=== PATIENT | female | born 1965 | race Caucasian/White ===

== ENCOUNTER 2022-08-08 18:43 | Inpatient (IN) | payer BC ==
[~2022-08-08] VITALS: Ht 175.3 cm; Wt 60.8 kg
[~2022-08-08 18:43] MED LIST changes: -ACET-2267 PO; -BLUE500T PO; -COLLAGEN PEPTIDES PO; -FURO20TA4 PO; -IBUP-2473 PO; -MAGN400T39 PO; -NAPR220T66 PO; -POTA10TA PO; -POTA2TAB5 PO; -SOY155CA PO; -TURM500C4 PO; -VITA-189 PO
[2022-08-08] MEDS ORDERED: ASPIRIN 81 MG CHEW (CHILDREN'S ASA) PO STA (18:55)
[2022-08-08] MEDS ORDERED: meTOprolol 5 MG/5 ML (LOPRESSOR) VIAL IV STA (19:09)
[2022-08-08 19:15] LABS: FIBRIN DEGRADATION PRODUCTS 1.04 UG/ML (0.00-0.49); PROTHROMBIN TIME PATIENT 13.5 SEC (12.2-14.7)
--- NOTE | 2022-08-08 19:19 | ED Cardiac General ---
History of Present Illness General Chief Complaint: Respiratory Problems Stated Complaint: SOA Nursing Triage Note: PT AMB TO [facility] WITH COMPLAINT OF SOA, CHEST PRESSURE FOR THE LAST TWO WEEKS. WAS SEEN AT URGENT CARE TODAY ADN SENT TO HOSPITAL FOR OUTPATIENT LABS. [facility] CALLED HER BACK TO DUE TO ELEVATED TROPONIN AND BNP. (EBONI ALEJANDRE) History of Present Illness Date Seen by Provider: Aug 08, 2022 Time Seen by Provider: 18:45 Initial Comments 56 year old weekend presents from Urgent Care. She was evaluated there earlier today for SOA, no chest pain. Had EKG at and referred to hospital for outpatient labs and chest xray. She returned home, troponin was elevated, so she was called to present to ER. No report was called here from . Patient denies chest pain but mild chest pressure without radiation to arms, neck, or face. She has experienced right shoulder and trapezius pain intermittently for the last few weeks, uses OTC meds to help. She reports seeing Dr. Anders many years ago for Mitral Valve Prolapse. Otherwise no known cardiac history. She did not get Aspirin at . No history of CAD or DM; denies tobacco or drug use; drinks alcohol 2-3 times a week (beer, wine or whiskey). Denies N/ V/D or diaphoresis. She had mycoplasma pneumonia in Mar 2022, prior to that she was active with weight lifting and yoga. Timing/Duration: other (2 weeks) Severity: mild Location: substernal Prior CP/Workup: no prior chest pain Modifying Factors: improves with rest NTG SL DIRECTOR OF FIELD SALES: No ASA po DIRECTOR OF FIELD SALES: No Associated Systoms: Chest Pain (pressure); No Cough, No Headaches, No Loss of Appetite, No Malaise, No Nausea/Vomiting; Shortness of Air; No Syncope, No Weakness (EBONI ALEJANDRE) Allergies and Home Medications Allergies Coded Allergies: amoxicillin (Verified Allergy, Unknown, 08/08/22) clavulanic acid (Verified Allergy, Unknown, 08/08/22) levofloxacin (Verified Allergy, Unknown, 08/08/22) pseudoephedrine (Verified Allergy, Unknown, 08/08/22) Patient Home Medication List Home Medication List Reviewed: Yes (EBONI ALEJANDRE) Azithromycin (Zithromax Tab) 250 Mg Tab, 2 TAB PO DAILY Prescribed by: SALLY MCDONOUGH on 08/03/12 2167 Review of Systems Review of Systems Constitutional: no symptoms reported, see HPI EENTM: No Symptoms Reported, See HPI Respiratory: See HPI, Shortness of Air Cardiovascular: See HPI, Chest Pain; Denies Palpitations Gastrointestinal: No Symptoms Reported, See HPI Genitourinary: No Symptoms Reported, See HPI (EBONI ALEJANDRE) All Other Systems Reviewed Negative Unless Noted: Yes (EBONI ALEJANDRE) Past Lrddflk-Mbpphu-Tnemsy Hx Patient Social History Smoking Status: Smoker Current Status UNK Smokeless Tobacco Frequency: User Current Status Unk Substance use?: Unable to obtain Alcohol Use?: Unable to obtain Pt feels they are or have been: Unable to obtain (EBONI ALEJANDRE) Immunizations Up To Date Tetanus Booster (TDap): Less than 5yrs (EBONI ALEJANDRE) Past Medical History Currently Using CPAP: No Currently Using BIPAP: No Cardiac: Yes Valvular Heart Disease Reproductive Disorders: No Female 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 oz. kg; 19.00 BMI Method: General Appearance: No Apparent Distress, WD/WN HEENT: PERRL/EOMI, TMs Normal, Normal ENT Inspection, Pharynx Normal Neck: Full Range of Motion, Normal Inspection, Non Tender, Supple Respiratory: Chest Non Tender, Lungs Clear, Normal Breath Sounds Cardiovascular: Regular Rate, Rhythm, Diastolic Murmur, Tachycardia Gastrointestinal: Normal Bowel Sounds, Non Tender, Soft Extremity: Normal Capillary Refill, Normal Inspection, Normal Range of Motion, No Pedal Edema Neurologic/Psychiatric: Alert, Oriented x3, No Motor/Sensory Deficits, Normal Mood/Affect Skin: Normal Color, Warm/Dry (EBONI ALEJANDRE) Progress/Results/Core Measures Results/Orders Lab Results Laboratory Tests Test 08/08/22 18:55 08/08/22 19:15 Range/Units Prothrombin Time 13.5 12.2-14.7 SEC INR Comment 1.0 0.8-1.4 Activated Partial Thromboplast Time 22 L 24-35 SEC D-Dimer 1.04 H 0.00-0.49 UG/ML Troponin I 0.052 H <0.028 NG/ML C-Reactive Protein High Sensitivity 0.55 H 0.00-0.50 MG/DL Influenza Type A (RT-PCR) Not Detected Not Detecte Influenza Type B (RT-PCR) Not Detected Not Detecte SARS-CoV-2 RNA (RT-PCR) Not Detected Not Detecte (AMI LIMA MD) My Orders Orders - AMI LIMA MD Ekg Tracing (08/08/22 18:46) (AMI LIMA MD) Medications Given in ED Current Medications Medications Dose Ordered Sig/Rehan Route Start Time Stop Time Status Last Admin Dose Admin Iohexol 100 ml ONCE ONCE IV 08/08/22 19:45 08/08/22 19:46 DC 08/08/22 19:53 65 ML Sodium Chloride 100 ml ONCE ONCE IV 08/08/22 19:45 08/08/22 19:46 DC 08/08/22 19:54 67 ML (AMI LIMA MD) Vital Signs/I&O 08/08/22 18:45 Pulse 123 Resp 16 B/P (MAP) 141/119 (126) Pulse Ox 97 O2 Delivery Room Air (AMI LIMA MD) Blood Pressure Mean: 126 Progress Progress Note : Time: 18:45 Progress Note Patient assessed, will repeat labs, EKG and aspirin 324. 1915 will give metoprolol 10 mg IV for heart rate that sustained in the upper 90s to 110. 1940 D-dimer elevated, will obtain CT angio. HR has improved to 80-90. troponin slightly higher than 1600, 0.[address] angio negative for PE. Discussed patient with Dr. Wilkerson and Dr. Hayes, agreeable with plans for admission. We will go Lovenox 40 mg subcu. Patient continues to have mild right shoulder pain in the trapezius region, will give Flexeril 10 mg p.o. (EBONI ALEJANDRE) Initial ECG Impression Date: Aug 08, 2022 Initial ECG Impression Time: 18:52 Initial ECG Rate: 116 Initial ECG Rhythm: S.Tach, PVC Initial ECG Intervals MA 148, QRST 90, QT 343, QTc 412. [place] P 86, RR 111, T- 6 Initial ECG Comparisson: Changed (PILIEBONI RAMOS) Diagnostic Imaging Diagonstic Imaging: Xray Plain Films/CT/US/NM/MRI: chest Comments NAME: CAITIE MCRAE [facility] REC#: [id number] PT STATUS: REG CLI : 1965 PHYSICIAN: DAMON SCHULZ APRN ADMIT DATE: 08/08/22/RAD Signed Date of Exam:08/08/22 CHEST PA/LAT (2 VIEW) INDICATION: SOA, nonrheumatic mitral valve prolapse. TECHNIQUE: Two view chest 4:37 PM. CORRELATION STUDY: None. FINDINGS: Moderate cardiac enlargement with a somewhat rounded configuration. Vasculature overall within normal limits. The lungs are clear with no consolidating infiltrate. There is no significant pleural effusion or pneumothorax. Mild S-type scoliotic curvature of the thoracic spine. IMPRESSION: Cardiac enlargement with somewhat rounded configuration. May reflect underlying cardiomyopathy versus pericardial effusion. No evidence of overt failure. Report was faxed to number provided at 4:45 p.m., by edenilson. Dictated by: Dictated on workstation # [id number] Dict: 08/08/22 1635 Trans: 08/08/221705 EDENILSON [id number] Interpreted by: NURY KHAN DO Electronically signed by: NURY KHAN DO 08/08/22 1706 Diagonstic Imaging: CT Plain Films/CT/US/NM/MRI: chest Comments NAME: CAITIE MCRAE [facility] REC#: [id number] PT STATUS: REG ER : 1965 PHYSICIAN: EBONI ALEJANDRE ADMIT DATE: 08/08/22/ER Draft Date of Exam:08/08/22 CT ANGIO CHEST W (R/O PE) INDICATION: Shortness of breath, elevated d-dimer. TECHNIQUE: CTA chest was obtained with IV contrast bolus, thin axial slices and MIP reconstructions. Dose reduction protocol was used. There is no prior study for comparison. There is cardiomegaly. There is no pulmonary arterial filling defect to suggest pulmonary emboli. Due to bolus timing, arterial structures are not well visualized but there is no evidence of aneurysm. There is no enlarged node in the mediastinum or judy. There is no enlarged axillary node. Visualized portions of the upper abdomen show no overt mass lesion. There is reflux of contrast into the hepatic veins and IVC compatible with CHF. There is a small right pleural effusion. Lung parenchymal windows show no consolidation. There is some dependent atelectatic change in the lung bases. IMPRESSION: No CT evidence of pulmonary emboli. Bolus timing is not optimal for evaluating the arterial structures. There is a small right pleural effusion. There is prominent cardiomegaly. There is evidence of CHF with reflux of contrast into the IVC and hepatic veins. There is some dependent atelectatic change but no discrete consolidation. Dictated on workstation # [id number] Dict: 08/08/222002 Trans: 08/08/222014 [facility] [id number] Interpreted by: CASH CRUZ MD Electronically signed by: (EBONI ALEJANDRE) Departure Impression Primary Impression: Elevated troponin Additional Impressions: Mitral valve prolapse Shortness of breath Disposition: ADMITTED INPATIENT Condition: Stable Admissions Decision to Admit/Date: Aug 08, 2022 Time/Decision to Admit Time: 19:00 (EBONI ALEJANDRE) Departure-Patient Inst. Referrals: NO,LOCAL PHYSICIAN (PCP/Family) Primary Care Physician ATTENDING PHYSICIAN NOTE: I was physically present as attending physician in the emergency department during the care of this patient. I did not personally interview or examine this patient. I did review the chart and found no formal cardiac evaluation previously. I did review the labs from the outpatient studies and found an elevated troponin of 0.04. Repeat troponin was slightly higher 2 hours later as 0.052. History and clinical presentation was reviewed with Eboni Alejandre NP. D- dimer was elevated and I therefore recommended CT angiogram. CT angiogram was reviewed by me personally and report was reviewed. No acute abnormalities, in particular pulmonary embolus, were noted by either me or the radiologist. Case was reviewed with Dr. Wilkerson, professor of fine art on-call. He recommended admission. Aspirin and prophylactic Lovenox were recommended. (AMI LIMA MD) Copy Copies To 1: FAUSTINO WORTHY AMY ARNP Aug 08, 2022 19:19 AMI LIMA MD Aug 08, 2022 21:40
[2022-08-08] MEDS ORDERED: NS IV 1000 ML 1,000 ML IV SCH (19:45)
[2022-08-08] MEDS ORDERED: NS 100 ML (IVPB) BAG IV ONE (19:45)
[2022-08-08] MEDS ORDERED: IOHEXOL 350 MG/ML 100 ML (OMNIPAQUE 350) VIAL IV ONE (19:45)
--- NOTE | 2022-08-08 20:17 | Diagnostic Imaging Report ---
INDICATION: Shortness of breath, elevated d-dimer. TECHNIQUE: CTA chest was obtained with IV contrast bolus, thin axial slices and MIP reconstructions. Dose reduction protocol was used. There is no prior study for comparison. There is cardiomegaly. There is no pulmonary arterial filling defect to suggest pulmonary emboli. Due to bolus timing, arterial structures are not well visualized but there is no evidence of aneurysm. There is no enlarged node in the mediastinum or judy. There is no enlarged axillary node. Visualized portions of the upper abdomen show no overt mass lesion. There is reflux of contrast into the hepatic veins and IVC compatible with CHF. There is a small right pleural effusion. Lung parenchymal windows show no consolidation. There is some dependent atelectatic change in the lung bases. IMPRESSION: No CT evidence of pulmonary emboli. Bolus timing is not optimal for evaluating the arterial structures. There is a small right pleural effusion. There is prominent cardiomegaly. There is evidence of CHF with reflux of contrast into the IVC and hepatic veins. There is some dependent atelectatic change but no discrete consolidation. Dictated by: Dictated on workstation # [id number]
[2022-08-08] MEDS ORDERED: ENOXAPARIN 40 MG/0.4 ML (LOVENOX) SYR SC STA (20:45)
[2022-08-08] MEDS ORDERED: CYCLOBENZAPRINE 10 MG (FLEXERIL) TAB PO STA (20:51)
[2022-08-08] MEDS ORDERED: morphine INJ 4 MG/ML 1 ML (VIAL/SYRINGE) IV PRN (21:45)
[2022-08-08] MEDS ORDERED: ONDANSETRON 4 MG/2 ML (SDV) Z0FRAN IV PRN (21:45)
[2022-08-08] MEDS ORDERED: CYCLOBENZAPRINE 10 MG (FLEXERIL) TAB PO PRN (21:45)
[2022-08-08 21:52] VITALS: BP 114/93
[2022-08-08] MEDS: NS IV 1000 ML 1,000 ML IV SCH (21:56)
[2022-08-08] MEDS: ACETAMINOPHEN 500 MG TAB (TYLENOL) PO PRN (21:56)
[2022-08-08 22:12] VITALS: BP 141/119
[2022-08-09] VITALS (7 sets, daily range): BP systolic 94–120; BP diastolic 71–97
[2022-08-09 01:41] LABS: BASOPHILS % (AUTO) 1 % (0-10); EOSINOPHILS % (AUTO) 1 % (0-10); HEMATOCRIT 48 % (35-52); HEMOGLOBIN 15.9 g/dL (11.5-16.0); LYMPHOCYTES % (AUTO) 22 % (12-44); MEAN CORPUSCULAR HEMOGLOBIN 31 pg (25-34); MEAN CORPUSCULAR HGB CONC 33 g/dL (32-36); MEAN CORPUSCULAR VOLUME 95 fL (80-99); MEAN PLATELET VOLUME 9.6 fL (9.0-12.2); MONOCYTES # (AUTO) 0.5 10^3/uL (0.0-1.0); MONOCYTES % (AUTO) 5 % (0-12); NEUTROPHILS # (AUTO) 6.3 10^3/uL (1.8-7.8); NEUTROPHILS % (AUTO) 71 % (42-75); PLATELET COUNT 232 10^3/uL (130-400); WHITE BLOOD COUNT 8.9 10^3/uL (4.3-11.0)
[2022-08-09 01:45] LABS: POTASSIUM 4.3 MMOL/L (3.6-5.0)
[2022-08-09 01:46] LABS: CALCIUM 8.8 MG/DL (8.5-10.1)
[2022-08-09 01:50] LABS: CREATININE SERUM 0.84 MG/DL (0.60-1.30)
[2022-08-09] MEDS: ACETAMINOPHEN 500 MG TAB (TYLENOL) PO PRN ×2 (08:15→16:23)
[2022-08-09] MEDS: ASPIRIN 325 MG (5 GR) TABLET PO SCH (08:16)
[2022-08-09] MEDS: RT-ALBUTEROL/IPRATROPIUM 3 ML (DUONEB) VIAL INH PRN (10:31)
[2022-08-09] MEDS: NS IV 1000 ML 1,000 ML IV SCH (10:46)
[2022-08-09] MEDS ORDERED: lisINopril 20 MG (PRINIVIL) TABLET PO SCH (11:00)
--- NOTE | 2022-08-09 11:26 | History & Physical-Hospitalist ---
History of Present Illness HPI/Chief Complaint Patient is a 56-year-old female with past medical history of hypertension who presented to the emergency department due to shortness of breath. She states that she had been diagnosed with mycoplasma pneumonia a few months ago and since that time has been intermittently short of breath and fatigued and never really got back to her baseline. Roughly 2 weeks ago though she became more short of breath and over the last week she has noted lower extremity edema of her legs. 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 She worked from home and kept her legs elevated 1 day and that seemed to help with her edema. Despite this she continued to have increasing shortness of breath and even orthopnea so she decided to seek evaluation in urgent care. They sent her to the hospital for outpatient labs and a chest x- ray. Her labs revealed an elevated troponin and she was then referred to the emergency department. A CTA of her chest was done which showed no evidence of pulmonary embolus but did have a small right pleural effusion with cardiomegaly with evidence of CHF. Repeat troponin was elevated and she was admitted for observation. Source: patient Date Seen 08/09/22 Time Seen by a Provider: 08:50 Attending Physician No,Local Physician PCP Admitting Physician: Avery Benites MD Attending Physician: Avery Benites MD Referring Physician Date of Admission Aug 08, 2022 at 20:30 Home Medications & Allergies Home Medications Reviewed patient Home Medication Reconciliation performed by pharmacy medication reconciliations health type technician and/or nursing. Patients Allergies have been reviewed. Allergies Allergies Coded Allergies amoxicillin (Verified Allergy, Unknown, 08/08/22) clavulanic acid (Verified Allergy, Unknown, 08/08/22) levofloxacin (Verified Allergy, Unknown, 08/08/22) pseudoephedrine (Verified Allergy, Unknown, 08/08/22) Past Lmysdfk-Ftgttv-Usrizm Hx Patient Social History Tobacco Use?: No Smoking Status: Smoker Current Status UNK Smokeless Tobacco Frequency: User Current Status Unk Use of E-Cig and/or Vaping dev: No Substance use?: No Alcohol Use?: Yes Alcohol type: Beer, Hard Liquor, Wine Alcohol Frequency: Couple times a week Pt feels they are or have been: Yes Immunizations Up To Date Date of Influenza Vaccine: Jun 24, 2022 Tetanus Booster (TDap): More Than 5 Years Current Status status: No status: No Advance Directives: No Communicates: Verbally Primary Language: Nigerian Preferred Spoken Language: Nigerian Is interpretation needed?: No Sensory deficits: Vision impairment Past Medical History Currently Using CPAP: No Currently Using BIPAP: No 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 oz. kg; 21.05 BMI Method: General Appearance: No Apparent Distress, Thin HEENT: PERRL/EOMI, Moist Mucous Membranes; No Scleral Icterus (L), No Scleral Icterus (R) Neck: Normal Inspection, Supple Respiratory: Lungs Clear, No Accessory Muscle Use, No Respiratory Distress Cardiovascular: Regular Rate, Rhythm, Systolic Murmur Gastrointestinal: Normal Bowel Sounds, Non Tender, Soft Extremity: Normal Capillary Refill, No Calf Tenderness, No Pedal Edema Neurologic/Psychiatric: Alert, Oriented x3, Normal Mood/Affect Results Results/Procedures Labs Laboratory Tests 08/09/22 01:05 Patient resulted labs reviewed. Imaging: Reviewed Imaging Report Imaging [facility] [place] NAME: CAITIE MCRAE [facility] REC#: [id number] PT STATUS: ADM IN : 1965 PHYSICIAN: VEDA ALEJANDRE ADMIT DATE: 08/08/22/ANA Signed Date of Exam:08/08/22 CT ANGIO CHEST W (R/O PE) INDICATION: Shortness of breath, elevated d-dimer. TECHNIQUE: CTA chest was obtained with IV contrast bolus, thin axial slices and MIP reconstructions. Dose reduction protocol was used. There is no prior study for comparison. There is cardiomegaly. There is no pulmonary arterial filling defect to suggest pulmonary emboli. Due to bolus timing, arterial structures are not well visualized but there is no evidence of aneurysm. There is no enlarged node in the mediastinum or judy. There is no enlarged axillary node. Visualized portions of the upper abdomen show no overt mass lesion. There is reflux of contrast into the hepatic veins and IVC compatible with CHF. There is a small right pleural effusion. Lung parenchymal windows show no consolidation. There is some dependent atelectatic change in the lung bases. IMPRESSION: No CT evidence of pulmonary emboli. Bolus timing is not optimal for evaluating the arterial structures. There is a small right pleural effusion. There is prominent cardiomegaly. There is evidence of CHF with reflux of contrast into the IVC and hepatic veins. There is some dependent atelectatic change but no discrete consolidation. Dictated by: Dictated on workstation # [id number] Dict: 08/08/222002 Trans: 08/08/222206 [facility] [id number] Interpreted by: CASH CRUZ MD Electronically signed by: CASH CRUZ MD 08/08/222206 Assessment/Plan Admission Diagnosis NSTEMI Admission Status: Observation Assessment and Plan Elevated troponin CHF- acutely decompensated Mitral valve prolapse HTN Likely type II WI due to CHF exacerbation Cardiology consulted, appreciate recs Echo ordered Monitor on telemetry BP well controlled, trend Further work up per cardiology DVT ppx: SCDs Diagnosis/Problems Diagnosis/Problems (1) HTN (hypertension) (2) Elevated troponin Status: Acute (3) Mitral valve prolapse Status: Acute Clinical Quality Measures AMI/AHF: ASA po Prior to arrival: AVERY Ma MD Aug 09, 2022 11:26
[2022-08-09] MEDS: FUROSEMIDE 40 MG/4 ML INJ (LASIX) IVP SCH (11:48)
[2022-08-09] MEDS: lisINopril 5 MG (PRINIVIL) TABLET PO SCH (11:48)
[2022-08-09] MEDS: KCL 10 MEQ TAB (MICRO K) PO SCH (11:48)
--- NOTE | 2022-08-09 14:42 | Consultation-Cardiology ---
HPI-Cardiology Cardiology Consultation: Date of Consultation 08/09/22 Time Seen by a Provider: 10:30 Date of Admission Attending Physician No,Local Physician Admitting Physician Admitting Physician: Malina Benites MD Attending Physician: Malina Benites MD Consulting Physician TONEY PARADA MD, MA, FACP, FACC, [facility], CCDS HPI: Chief Complaint: Shortness of breath 56 yo woman with increasing shortness of breath for a few weeks. Went to Urgent Care for eval on 08/08/22. Was found to have minimally elevated troponin. Sent to ER at [facility] from where she was admitted. She denies cp. Notes mild to mod, intermittent R shoulder discomfort, worse with motion, lasting up to approx 45 min, present for several weeks, unassociated with other symptoms, w/o radiation. Notes bilat ankle and leg swelling for the last several days. Denies palp or syncope Review of Systems-Cardiology Review of Systems Constitutional: malaise; No weight loss, No weight gain Eyes: No vision change Ears/Nose/Throat: No ear discharge, No nasal drainage, No recent hearing loss Respiratory: As described under HPI Cardiovascular: As described under HPI Gastrointestinal: No constipation, No diarrhea, No nausea, No vomiting Genitourinary: No dysuria, No hematuria, No urine frequency changes Musculoskeletal: joint pain (see under HPI) Skin: No rash, No ulcerations Psychiatric/Neurological: No seizure, No focal weakness, No syncope Hematologic: No bleeding abnormalities All Other Systems Reviewed Negative Unless Noted: Yes [id number] Hx Patient Social History Smoking Status: Smoker Current Status UNK Have you traveled recently?: No Alcohol Use?: Yes Pt feels they are or have been: Yes Immunizations Up To Date Tetanus Booster (TDap): Less than 5yrs Date of Influenza Vaccine: Jun 24, 2022 Past Medical History PMH As described under Assessment. Family Medical History Family Medical History: No fam h/o early CAD or SCD Allergies and Home Medications Allergies Coded Allergies: amoxicillin (Verified Allergy, Unknown, 08/08/22) clavulanic acid (Verified Allergy, Unknown, 08/08/22) levofloxacin (Verified Allergy, Unknown, 08/08/22) pseudoephedrine (Verified Allergy, Unknown, 08/08/22) Patient Home Medication List Home Medication List Reviewed: Yes Azithromycin (Zithromax Tab) 250 Mg Tab, 2 TAB PO DAILY Prescribed by: SALLY MCDONOUGH on 08/03/12 0447 Physical Exam-Cardiology Physical Exam Vital Signs/I&O 08/09/22 08/09/22 08/09/22 08/09/22 04:00 04:00 07:00 07:34 Temp 35.9 36.2 Pulse 98 94 103 Resp 21 16 B/P (MAP) 112/97 (102) 120/93 (102) Pulse Ox 94 96 O2 Delivery Room Air Room Air 08/09/22 08/09/22 08/09/22 08/09/22 08:00 08:54 10:31 11:58 Temp 36.3 Pulse 102 Resp 17 B/P (MAP) 120/95 (103) Pulse Ox 97 97 96 95 O2 Delivery Room Air Room Air Room Air Room Air O2 Flow Rate 0.00 0.00 08/09/22 12:42 Pulse 115 08/09/22 00:00 Intake Total 200 ml Balance 200 ml Capillary Refill : Less Than 3 Seconds Constitutional: AAO x 3, well-developed, well-nourished HEENT: EOMI, hearing is well preserved Neck: No carotid bruit; carotid pulses are 2 + bilaterally, with good upstrokes Respiratory: No accessory muscle use; chest expansion is symmetric, chest is bilaterally symmetric, other (good bilateral air enry) Cardiovascular: S1 and S2, systolic murmur (3/6 HSM at the card apex radiating towards the axilla) Gastrointestinal: No tender; soft; No guarding, No rebound; audible bowel sounds Extremities: other (mild ankle edema); No clubbing, No cyanosis Neurologic/Psychiatric: oriented x 3, other (moves all limbs equally) Skin: No rash on exposed areas, No ulcerations on exposed areas Data Review Labs Laboratory Tests 08/08/22 18:55: Prothrombin Time 13.5, INR Comment 1.0, Activated Partial Thromboplast Time 22L, D-Dimer 1.04H, Troponin I 0.052H, C-Reactive Protein High Sensitivity 0.55H 08/08/22 19:15: Influenza Type A (RT-PCR) Not Detected, Influenza Type B (RT-PCR) Not Detected, SARS-CoV-2 RNA (RT-PCR) Not Detected 08/09/22 01:05: Troponin I 0.054H, White Blood Count 8.9, Red Blood Count 5.10, Hemoglobin 15.9, Hematocrit 48, Mean Corpuscular Volume 95, Mean Corpuscular Hemoglobin 31, Mean Corpuscular Hemoglobin Concent 33, Red Cell Distribution Width 13.5, Platelet Count 232, Mean Platelet Volume 9.6, Immature Granulocyte % (Auto) 1, Neutrophils (%) (Auto) 71, Lymphocytes (%) (Auto) 22, Monocytes (%) (Auto) 5, Eosinophils (%) (Auto) 1, Basophils (%) (Auto) 1, Neutrophils # (Auto) 6.3, Lymphocytes # (Auto) 2.0, Monocytes # (Auto) 0.5, Eosinophils # (Auto) 0.0, Basophils # (Auto) 0.0, Immature Granulocyte # (Auto) 0.0, Sodium Level 141, Potassium Level 4.3, Chloride Level 114H, Carbon Dioxide Level 14L, Anion Gap 13, Blood Urea Nitrogen 23H, Creatinine 0.84, Estimat Glomerular Filtration Rate 80, BUN/Creatinine Ratio 27, Glucose Level 114H, Calcium Level 8.8 Laboratory Tests 08/09/22 01:05 A/P-Cardiology Assessment/Admission Diagnosis Ac CHF probably related to mitral regurg (probably HFpEF) H/o MVP Minimal troponin elevation probably minimal, type 2 [place] due to CHF. No evidence of acute coronary syndrome Discussion and Recomendations * Diuretics * BB * CARMINA-inhib * Echo * Further recs based on hosp course and findings * I discussed her CV issues with her and her fam in detail and answered questions Clinical Quality Measures AMI/AHF: ASA po Prior to arrival: TONEY Mir MD FACP FAC CCDS Aug 09, 2022 14:42
[2022-08-09] MEDS ORDERED: FUROSEMIDE 40 MG/4 ML INJ (LASIX) IVP NR (17:00)
[2022-08-09] MEDS ORDERED: KCL 20 MEQ TAB (K-DUR) PO NR (17:00)
[2022-08-10] VITALS (7 sets, daily range): BP systolic 89–106; BP diastolic 62–83
[2022-08-10 05:15] LABS: BASOPHILS % (AUTO) 0 % (0-10); EOSINOPHILS # (AUTO) 0.1 10^3/uL (0.0-0.3); EOSINOPHILS % (AUTO) 2 % (0-10); HEMATOCRIT 43 % (35-52); HEMOGLOBIN 14.4 g/dL (11.5-16.0); LYMPHOCYTES # (AUTO) 2.2 10^3/uL (1.0-4.0); LYMPHOCYTES % (AUTO) 35 % (12-44); MEAN CORPUSCULAR HEMOGLOBIN 31 pg (25-34); MEAN CORPUSCULAR HGB CONC 34 g/dL (32-36); MEAN CORPUSCULAR VOLUME 93 fL (80-99); MEAN PLATELET VOLUME 9.5 fL (9.0-12.2); MONOCYTES # (AUTO) 0.3 10^3/uL (0.0-1.0); MONOCYTES % (AUTO) 5 % (0-12); NEUTROPHILS # (AUTO) 3.7 10^3/uL (1.8-7.8); NEUTROPHILS % (AUTO) 58 % (42-75); PLATELET COUNT 228 10^3/uL (130-400); WHITE BLOOD COUNT 6.3 10^3/uL (4.3-11.0)
[2022-08-10 05:25] LABS: POTASSIUM 4.1 MMOL/L (3.6-5.0)
[2022-08-10 05:26] LABS: CALCIUM 8.6 MG/DL (8.5-10.1)
[2022-08-10 05:31] LABS: CREATININE SERUM 0.85 MG/DL (0.60-1.30)
[2022-08-10 05:33] LABS: MAGNESIUM 1.8 MG/DL (1.6-2.4)
[2022-08-10] MEDS: KCL 10 MEQ TAB (MICRO K) PO SCH (06:34)
[2022-08-10] MEDS: RT-ALBUTEROL/IPRATROPIUM 3 ML (DUONEB) VIAL INH PRN (06:36)
[2022-08-10] MEDS: FUROSEMIDE 40 MG/4 ML INJ (LASIX) IVP SCH (09:15)
[2022-08-10] MEDS: lisINopril 5 MG (PRINIVIL) TABLET PO SCH (09:15)
[2022-08-10] MEDS: ASPIRIN 325 MG (5 GR) TABLET PO SCH (09:16)
[2022-08-10] MEDS ORDERED: NS (IVPB) 0 ML ONE (09:34)
[2022-08-10] MEDS ORDERED: CEFEPIME 1 GM/10 ML (MAXIPIME) VIAL ONE (09:34)
--- NOTE | 2022-08-10 10:29 | Progress Note - Cardiology ---
Cardiology SOAP Progress Note Objective: I&O/Vital Signs 08/10/22 08/10/22 08/10/22 08/11/22 19:49 20:00 20:36 00:00 Temp 36.5 Pulse 103 98 94 Resp 15 20 18 B/P (MAP) 104/82 (89) 98/67 (77) 100/82 (88) Pulse Ox 96 93 96 93 O2 Delivery Room Air Room Air Room Air Room Air 08/11/22 08/11/22 08/11/22 08/11/22 00:11 01:00 04:00 04:11 Temp 36.0 36.0 Pulse 95 95 Resp 18 B/P (MAP) 107/75 (86) Pulse Ox 94 O2 Delivery Room Air 08/11/22 00:00 Intake Total 750 ml Output Total 300 ml Balance 450 ml Constitutional: AAO x 3, well-developed, well-nourished Respiratory: No accessory muscle use; chest expansion is symmetric, chest is bilaterally symmetric, other (good bilateral air enry) Cardiovascular: S1 and S2, systolic murmur (3/6 HSM at the card apex radiating towards the axilla) Gastrointestional: No tender; soft; No guarding, No rebound; audible bowel sounds Extremities: other (mild ankle edema); No clubbing, No cyanosis Neurologic/Psychiatric: oriented x 3, other (moves all limbs equally) Skin: No rash on exposed areas, No ulcerations on exposed areas Results/Procedures: Labs Laboratory Tests 08/11/22 04:41: Sodium Level 142, Potassium Level 4.0, Chloride Level 111H, Carbon Dioxide Level 21, Anion Gap 10, Blood Urea Nitrogen 20H, Creatinine 0.91, Estimat Glomerular Filtration Rate 73, BUN/Creatinine Ratio 22, Glucose Level 92, Calcium Level 8.9, Magnesium Level 1.8 A/P: Assessment: Ac CHF probably related to mitral regurg (probably HFpEF) - Echocardiogram of 08-09-22 showed LVEF 60-65%. LA is severely dilated. 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 No evidence of acute coronary syndrome Plan: * Reduce diuretics * Continue CARMINA * Monitor lab * Will need CV surgical eval d/t mod mitral valve prolapse with prob rupture of tendinous chorda with severe regurg * Dr. Wilkerson has discussed her CV issues with her and her fam in detail and answered questions Clinical Quality Measures AMI/AHF: ASA po Prior to arrival: SONG Artis Aug 10, 2022 10:29
[2022-08-10] MEDS ORDERED: FURO20TA4 PO (11:06)
[2022-08-10] MEDS ORDERED: POTA10TA PO (11:06)
[2022-08-10] MEDS ORDERED: IBUP-2473 PO (11:06)
[2022-08-10] MEDS ORDERED: VITA-189 PO (11:06)
[2022-08-10] MEDS ORDERED: SOY155CA PO (11:06)
[2022-08-10] MEDS ORDERED: BLUE500T PO (11:06)
[2022-08-10] MEDS ORDERED: COLLAGEN PEPTIDES PO (11:06)
[2022-08-10] MEDS ORDERED: POTA2TAB5 PO (11:06)
[2022-08-10] MEDS ORDERED: NAPR220T66 PO (11:06)
[2022-08-10] MEDS ORDERED: MAGN400T39 PO (11:06)
[2022-08-10] MEDS ORDERED: ACET-2267 PO (11:06)
[2022-08-10] MEDS ORDERED: TURM500C4 PO (11:06)
--- NOTE | 2022-08-10 15:14 | Progress Note - Cardiology ---
Cardiology SOAP Progress Note Subjective: Shortness of breath has improved No cp or palp or syncope No swelling No n/v/d No focal weakness Objective: I&O/Vital Signs 08/10/22 08/10/22 08/10/22 08/10/22 04:00 06:36 06:50 08:00 Temp 36.4 Pulse 86 98 Resp 18 B/P (MAP) 102/82 (89) Pulse Ox 98 94 95 O2 Delivery Room Air Room Air Room Air O2 Flow Rate 0.00 08/10/22 08/10/22 08/10/22 08/10/22 08:00 09:00 12:00 12:30 Pulse 105 102 Resp 20 12 B/P (MAP) 89/62 (71) 100/78 (85) 106/83 (91) Pulse Ox 97 96 95 O2 Delivery Room Air Room Air Room Air 08/10/22 13:47 Pulse 105 08/10/22 00:00 Intake Total 1390 ml Balance 1390 ml Constitutional: AAO x 3, well-developed, well-nourished Respiratory: No accessory muscle use; chest expansion is symmetric, chest is bilaterally symmetric, other (good bilateral air enry) Cardiovascular: S1 and S2, systolic murmur (3/6 HSM at the card apex radiating towards the axilla) Gastrointestional: No tender; soft; No guarding, No rebound; audible bowel sounds Extremities: other (mild ankle edema); No clubbing, No cyanosis Neurologic/Psychiatric: oriented x 3, other (moves all limbs equally) Skin: No rash on exposed areas, No ulcerations on exposed areas Results/Procedures: Labs Laboratory Tests 08/10/22 05:05: White Blood Count 6.3, Red Blood Count 4.59, Hemoglobin 14.4, Hematocrit 43, Mean Corpuscular Volume 93, Mean Corpuscular Hemoglobin 31, Mean Corpuscular Hemoglobin Concent 34, Red Cell Distribution Width 13.7, Platelet Count 228, Mean Platelet Volume 9.5, Immature Granulocyte % (Auto) 0, Neutrophils (%) (Auto) 58, Lymphocytes (%) (Auto) 35, Monocytes (%) (Auto) 5, Eosinophils (%) (Auto) 2, Basophils (%) (Auto) 0, Neutrophils # (Auto) 3.7, Lymphocytes # (Auto) 2.2, Monocytes # (Auto) 0.3, Eosinophils # (Auto) 0.1, Basophils # (Auto) 0.0, Immature Granulocyte # (Auto) 0.0, Sodium Level 142, Potassium Level 4.1, Chloride Level 114H, Carbon Dioxide Level 18L, Anion Gap 10, Blood Urea Nitrogen 20H, Creatinine 0.85, Estimat Glomerular Filtration Rate 79, BUN/Creatinine Ratio 24, Glucose Level 101, Calcium Level 8.6, Magnesium Level 1.8 Laboratory Tests 08/09/22 01:05 08/10/22 05:05 A/P: Assessment: Ac CHF probably related to mitral regurg (probably HFpEF) - Echocardiogram of 08-09-22 showed LVEF 60-65%. LA is severely dilated. 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 No evidence of acute coronary syndrome Plan: * Change diuretids to oral * Continue CARMINA * Monitor lab * I discussed the case with Dr Koehler of CT surg svce at [facility] * Plan card cath and SHAN in prep for surg. I discussed the rationale, procedure, risks, benefits, potential complications and alternatives of these procedures with her in detail and answered questions. She understands and provides informed consent Clinical Quality Measures AMI/AHF: ASA po Prior to arrival: TONEY Mir MD FACP [facility] Aug 10, 2022 15:14
--- NOTE | 2022-08-10 15:54 | Progress Note - Hospitalist ---
Subjective HPI/CC On Admission Date Seen by Provider: Aug 10, 2022 Time Seen by Provider: 10:40 Patient is a 56-year-old female with past medical history of hypertension who presented to the emergency department due to shortness of breath. She states that she had been diagnosed with mycoplasma pneumonia a few months ago and since that time has been intermittently short of breath and fatigued and never really got back to her baseline. Roughly 2 weeks ago though she became more short of breath and over the last week she has noted lower extremity edema of her legs. 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 She worked from home and kept her legs elevated 1 day and that seemed to help with her edema. Despite this she continued to have increasing shortness of breath and even orthopnea so she decided to seek evaluation in urgent care. They sent her to the hospital for outpatient labs and a chest x- ray. Her labs revealed an elevated troponin and she was then referred to the emergency department. A CTA of her chest was done which showed no evidence of pulmonary embolus but did have a small right pleural effusion with cardiomegaly with evidence of CHF. Repeat troponin was elevated and she was admitted for observation. Subjective/Events-last exam She is doing well. She is not short of breath. She denies chest pain. She does not have any leg swelling. Objective Exam Vital Signs Vital Signs Date Time Temp Pulse Resp B/P (MAP) Pulse Ox O2 Delivery O2 Flow Rate FiO2 08/10/22 15:35 36.4 103 24 98/70 (79) 96 Room Air 08/10/22 06:36 0.00 08/08/22 22:12 21 Capillary Refill : Less Than 3 Seconds General Appearance: No Apparent Distress, WD/WN Respiratory: Lungs Clear, No Respiratory Distress Cardiovascular: Regular Rate, Rhythm, No Murmur, Systolic Murmur Gastrointestinal: Normal Bowel Sounds, Soft Extremity: Normal Inspection, No Pedal Edema Neurologic/Psychiatric: Alert, Normal Mood/Affect Skin: Normal Color, Warm/Dry Results/Procedures Lab Laboratory Tests 08/10/22 05:05 Patient resulted labs reviewed. Imaging: Reviewed Imaging Report Assessment/Plan Assessment and Plan Assess & Plan/Chief Complaint Acute heart failure with preserved ejection fraction Mitral valve prolapse Severe mitral regurgitation Elevated troponin HTN Cardiology following Echo with mitral valve prolapse, severe mitral regurgitation Planning for SHAN and left heart cath tomorrow NPO at midnight Will need referral to CT surgery Diagnosis/Problems Diagnosis/Problems (1) Acute heart failure with preserved ejection fraction (HFpEF) Status: Acute (2) Mitral valve prolapse Status: Acute (3) Severe mitral regurgitation Status: Acute (4) Elevated troponin Status: Acute (5) HTN (hypertension) Status: Chronic Qualifiers: Hypertension type: primary hypertension Qualified Codes: I10 - Essential ( primary) hypertension Clinical Quality Measures AMI/AHF: ASA po Prior to arrival: FEDE House MD Aug 10, 2022 15:54
[2022-08-11] VITALS (14 sets, daily range): BP systolic 96–119; BP diastolic 75–96
[2022-08-11 05:09] LABS: CALCIUM 8.9 MG/DL (8.5-10.1)
[2022-08-11 05:14] LABS: CREATININE SERUM 0.91 MG/DL (0.60-1.30)
[2022-08-11 05:16] LABS: MAGNESIUM 1.8 MG/DL (1.6-2.4)
[2022-08-11] MEDS: KCL 10 MEQ TAB (MICRO K) PO SCH (06:30)
[2022-08-11] MEDS ORDERED: NS IV 1000 ML 1,000 ML ONE (08:35)
[2022-08-11] MEDS ORDERED: HEParin (CATH LAB) 2,000 ML IV ONE (08:35)
[2022-08-11] MEDS ORDERED: LIDOCAINE 1% INJ 30 ML (XYLOCAINE) VIAL ONE (08:35)
[2022-08-11] MEDS ORDERED: fentaNYL INJ 100 MCG/2 ML AMP ONE ×2 (08:39→11:01)
[2022-08-11] MEDS ORDERED: MIDAZOLAM 5 MG/5 ML (VERSED) VIAL ONE ×2 (08:39→11:01)
[2022-08-11] MEDS ORDERED: FUROSEMIDE 20 MG (LASIX) TAB PO SCH ×2 (09:00)
[2022-08-11] MEDS ORDERED: LIDOCAINE 2% VISCOUS 15 ML UDC ONE (10:20)
[2022-08-11] MEDS ORDERED: HEParin 1000 UNIT/ML (10ML VIAL) FOR BOLUS ONE (10:26)
[2022-08-11] MEDS ORDERED: ADENOSINE 90 MG/30 ML (ADENOSCAN) VIAL IV ONE (10:27)
[2022-08-11] MEDS ORDERED: NS IV 1000 ML 1,000 ML IV SCH (11:15)
[2022-08-11] MEDS ORDERED: PATIENT MAY USE OWN MEDS, ALL PO SCH (11:15)
[2022-08-11] MEDS ORDERED: LIDOCAINE 2% VISCOUS 15 ML UDC PO ONE (11:20)
[2022-08-11] MEDS ORDERED: KCL 10 MEQ TAB (MICRO K) PO NR (11:30)
[2022-08-11] MEDS ORDERED: lisINopril 5 MG (PRINIVIL) TABLET PO NR (11:30)
[2022-08-11] MEDS ORDERED: FUROSEMIDE 40 MG/4 ML INJ (LASIX) IVP NR (11:30)
[2022-08-11] MEDS ORDERED: MIDAZOLAM 5 MG/5 ML (VERSED) VIAL IV ONE (12:30)
[2022-08-11] MEDS ORDERED: fentaNYL INJ 100 MCG/2 ML AMP IV ONE (12:30)
--- NOTE | 2022-08-11 12:47 | Progress Note - Cardiology ---
Cardiology SOAP Progress Note Subjective: Shortness of breath improved compared to time of admission but not completely resolved No cp or palp or syncope No n/v/d Swelling has improved Objective: I&O/Vital Signs 08/11/22 08/11/22 08/11/22 08/11/22 01:00 04:00 04:11 07:47 Temp 36.0 Pulse 95 95 102 Resp 18 B/P (MAP) 107/75 (86) Pulse Ox 94 O2 Delivery Room Air 08/11/22 08/11/22 08/11/22 08/11/22 08:00 11:09 11:23 11:40 Pulse 101 108 110 105 Resp 18 B/P (MAP) 111/89 (96) 113/94 (100) 119/96 (104) 115/95 (102) Pulse Ox 90 100 100 99 O2 Delivery Room Air Simple Mask Simple Mask Simple Mask O2 Flow Rate 10.00 10.00 10.00 08/11/22 08/11/22 08/11/22 08/11/22 11:44 11:53 12:05 12:21 Pulse 115 102 106 102 B/P (MAP) 117/96 (103) 102/84 (90) 96/78 (84) 100/86 (91) Pulse Ox 100 99 99 93 O2 Delivery Simple Mask Simple Mask Simple Mask Room Air O2 Flow Rate 10.00 10.00 10.00 08/11/22 12:35 Pulse 105 B/P (MAP) 105/87 (93) Pulse Ox 92 O2 Delivery Room Air 08/10/22 23:59 Intake Total 750 ml Output Total 300 ml Balance 450 ml Constitutional: AAO x 3, well-developed, well-nourished Respiratory: No accessory muscle use; chest expansion is symmetric, chest is bilaterally symmetric, other (good bilateral air enry) Cardiovascular: S1 and S2, systolic murmur (3/6 HSM at the card apex radiating towards the axilla) Gastrointestional: No tender; soft; No guarding, No rebound; audible bowel sounds Extremities: other (mild ankle edema); No clubbing, No cyanosis Neurologic/Psychiatric: oriented x 3, other (moves all limbs equally) Skin: No rash on exposed areas, No ulcerations on exposed areas Results/Procedures: Labs Laboratory Tests 08/11/22 04:41: Sodium Level 142, Potassium Level 4.0, Chloride Level 111H, Carbon Dioxide Level 21, Anion Gap 10, Blood Urea Nitrogen 20H, Creatinine 0.91, Estimat Glomerular Filtration Rate 73, BUN/Creatinine Ratio 22, Glucose Level 92, Calcium Level 8.9, Magnesium Level 1.8 Laboratory Tests 08/10/22 05:05 08/11/22 04:41 A/P: Assessment: Ac HFpEF due to severe mitral regurg due to ruptured primary chord of the posterior mitral leaflet - Echocardiogram of 08-09-22 showed LVEF 60-65%. LA is severely dilated. There is chordal rupture and there is severe MR and PASP is 45-50 mmHg - Card cath of 08-11-22: Mild CAD (40-50% mid LAD with FFR 0.96, codominant LCx and RCA w/o significant disease), LVEDP 20 mmHg, PWP 27 mmHg, V-waves 35 mmHg, PASP 60 mmHg - SHAN on 08-11-22: severe MR due to posterior mitral leaflet prolapse likely due to primary chord rupture, LVEF normal Pulmonary hypertension - PASP on echo of 08-09-22 is 45-50 mmHg - PASP on right heart cath on 08-11-22 was approx 60 mmHg Minimal troponin elevation probably minimal, type 2 [place] due to CHF. No evidence of acute coronary syndrome Plan: * I discussed her cath and SHAN findings with her * She wishes to be referred for surgical repair to [facility] * I called Dr Zeng at [facility] and discussed the case with him in detail. He has kindly accepted the patient in transfer. Arrangements are being made Clinical Quality Measures AMI/AHF: ASA po Prior to arrival: TONEY Mir MD FACP FAC CCDS Aug 11, 2022 12:47
--- NOTE | 2022-08-11 12:51 | Cardiology Discharge Summary ---
Diagnosis/Chief Complaint Date of Admission Aug 08, 2022 at 20:30 Date of Discharge 08-11-22 Final/Discharge Diagnosis Ac HFpEF due to severe mitral regurg due to ruptured primary chord of the posterior mitral leaflet - Echocardiogram of 08-09-22 showed LVEF 60-65%. LA is severely dilated. There is chordal rupture and there is severe MR and PASP is 45-50 mmHg - Card cath of 08-11-22: Mild CAD (40-50% mid LAD with FFR 0.96, codominant LCx and RCA w/o significant disease), LVEDP 20 mmHg, PWP 27 mmHg, V-waves 35 mmHg, PASP 60 mmHg - SHAN on 08-11-22: severe MR due to posterior mitral leaflet prolapse likely due to primary chord rupture, LVEF normal Pulmonary hypertension - PASP on echo of 08-09-22 is 45-50 mmHg - PASP on right heart cath on 08-11-22 was approx 60 mmHg Minimal troponin elevation probably minimal, type 2 [place] due to CHF. No evidence of acute coronary syndrome Chief Complaint/HPI Chief Complaint/HPI 56 yo woman with increasing shortness of breath for a few weeks. Went to Urgent Care for eval on 08/08/22. Was found to have minimally elevated troponin. Sent to ER at [facility] from where she was admitted. She denies cp. Notes mild to mod, intermittent R shoulder discomfort, worse with motion, lasting up to approx 45 min, present for several weeks, unassociated with other symptoms, w/o radiation. Notes bilat ankle and leg swelling for the last several days. Denies palp or syncope Hosp Course: Please our progress note of today's date for hosp course. I have discussed the case with Dr Zeng of CV surg at [facility] and Ms Adams is being transferred for surgical repair Discharge Summary Discussion & Recommendations Home Medications Reviewed patient Home Medication Reconciliation performed by pharmacy medication reconciliations installation and service technician and/or nursing. Patients Allergies have been reviewed. Discharge Home Medications: Reviewed and agree with Discharge Medication list on patient's Discharge Instruction sheet Clinical Quality Measures AMI/AHF: ASA po Prior to arrival: TONEY Mir MD FACP FAC CCDS Aug 11, 2022 12:51
[2022-08-11] MEDS: lisINopril 5 MG (PRINIVIL) TABLET PO SCH (14:46)
[2022-08-11] MEDS: ACETAMINOPHEN 500 MG TAB (TYLENOL) PO PRN (14:47)
[2022-08-11] MEDS: ASPIRIN 325 MG (5 GR) TABLET PO SCH (14:47)
--- NOTE | 2022-08-11 14:58 | Progress Note - Hospitalist ---
Subjective HPI/CC On Admission Date Seen by Provider: Aug 11, 2022 Time Seen by Provider: 13:30 Patient is a 56-year-old female with past medical history of hypertension who presented to the emergency department due to shortness of breath. She states that she had been diagnosed with mycoplasma pneumonia a few months ago and since that time has been intermittently short of breath and fatigued and never really got back to her baseline. Roughly 2 weeks ago though she became more short of breath and over the last week she has noted lower extremity edema of her legs. 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 She worked from home and kept her legs elevated 1 day and that seemed to help with her edema. Despite this she continued to have increasing shortness of breath and even orthopnea so she decided to seek evaluation in urgent care. They sent her to the hospital for outpatient labs and a chest x- ray. Her labs revealed an elevated troponin and she was then referred to the emergency department. A CTA of her chest was done which showed no evidence of pulmonary embolus but did have a small right pleural effusion with cardiomegaly with evidence of CHF. Repeat troponin was elevated and she was admitted for observation. Subjective/Events-last exam She is feeling ok. She just got back from her procedure. She is going to be transferring to [place]. Objective Exam Vital Signs Vital Signs Date Time Temp Pulse Resp B/P (MAP) Pulse Ox O2 Delivery O2 Flow Rate FiO2 08/11/22 13:00 112 14 103/88 (93) 91 Room Air 08/11/22 12:50 35.9 08/11/22 12:05 10.00 08/08/22 22:12 21 Capillary Refill : Less Than 3 Seconds General Appearance: No Apparent Distress, WD/WN Respiratory: Lungs Clear, No Respiratory Distress Cardiovascular: Regular Rate, Rhythm, Systolic Murmur Gastrointestinal: Normal Bowel Sounds, Soft Extremity: Normal Inspection, No Pedal Edema Neurologic/Psychiatric: Alert, Normal Mood/Affect Results/Procedures Lab Laboratory Tests 08/11/22 04:41 Patient resulted labs reviewed. Imaging: Reviewed Imaging Report Assessment/Plan Assessment and Plan Assess & Plan/Chief Complaint Acute heart failure with preserved ejection fraction Mitral valve prolapse Severe mitral regurgitation Elevated troponin HTN Cardiology following TTE with mitral valve prolapse, severe mitral regurgitation SHAN with mitral valve prolapse and severe mitral regurgitation likely due to ruptured chordae tendinae Left heart cath with non-obstructive CAD Transferring to Dr. Zeng, CT surgery at [place], for surgical repair Diagnosis/Problems Diagnosis/Problems (1) Acute heart failure with preserved ejection fraction (HFpEF) Status: Acute (2) Mitral valve prolapse Status: Acute (3) Severe mitral regurgitation Status: Acute (4) Elevated troponin Status: Acute (5) HTN (hypertension) Status: Chronic Qualifiers: Hypertension type: primary hypertension Qualified Codes: I10 - Essential (primary) hypertension Clinical Quality Measures AMI/AHF: ASA po Prior to arrival: No FEDE CONNORS MD Aug 11, 2022 14:58
--- NOTE | 2022-08-11 15:41 | CARDIAC CATHETERIZATION ---
DATE OF SERVICE: 08/11/2022 CARDIAC CATHETERIZATION INDICATION: The patient is a 56-year-old lady who was hospitalized with acute congestive heart failure due to severe mitral regurgitation due to rupture of a chorda. This was seen on transthoracic echocardiography. Cardiac catheterization was carried out today after having obtained informed consent. DESCRIPTION OF PROCEDURE: She was brought to the cardiac catheterization laboratory in the fasting state. Right groin was prepared and draped in the usual sterile fashion. A 1% lidocaine was used for local anesthesia. Modified Seldinger technique was used to advance a 5-Dominican sheath in the right femoral artery and a 7-Dominican sheath in the right femoral vein. We used a 7-Dominican [place]-Akin catheter to carry out right heart catheterization and to measure oxygen saturation in various heart chambers. The [place]-Akin catheter was then removed. We advanced a 5-Dominican pigtail catheter into the ascending aorta. Ascending aortic oxygen saturation was measured. The catheter was advanced into the left ventricle. Left ventricular pressure measurements were carried out. Left ventricular angiography was not carried out. The catheter was pulled back and removed. Subsequently, we carried out coronary angiography. We used a 5-Dominican JL4 catheter for left coronary angiography and a 5-Dominican JR4 catheter for right coronary angiography. Fractional flow reserve measurement in the left anterior descending: The left anterior descending was exhibiting 40-50% mid vessel stenosis. We carried out fractional flow reserve measurement. We exchanged the sheath over a wire for a 6-Dominican sheath. We gave 4000 units of intravenous heparin. We used a 6-Dominican JL4 guide catheter. We advanced the pressure wire across the lesion and the tip was placed in the distal vessel. A 4000 units of intravenous heparin were given during this procedure. We gave adenosine at 140 mcg per kilogram per minute for 2-1/2 minutes. Fractional flow reserve was 0.96, indicating that the lesion was hemodynamically, not significant. HEMODYNAMICS: Pulmonary artery pressure was 67/36 with a mean of 49 mmHg. Mean pulmonary wedge pressure was 27 mmHg with V waves of 35 mmHg. Right ventricular pressure was 67/17. Mean right atrial pressure was 14 mmHg. Left ventricular pressure was 127/20. There was no significant pressure gradient on pullback across the aortic valve. The ascending aortic pressure was 147/87 with a mean of 99 mmHg. Thermodilution cardiac output was 1.9. Estimated Jeferson cardiac output was 2.13. CORONARY ANGIOGRAPHY: Left main coronary artery is free of significant disease. Left anterior descending artery has 40-50% mid vessel stenosis with a fractional flow reserve of 0.96, indicating this is hemodynamically insignificant. Right coronary and left circumflex artery are codominant. They do not exhibit significant disease. CONCLUSION: 1. Severe mitral regurgitation with V waves of 35 mmHg. 2. Pulmonary hypertension due to left heart failure due to mitral regurgitation. 3. 40-50 percent midvessel stenosis of the left anterior descending, hemodynamically nonsignificant (FFR 0.96). Left circumflex and right coronary arteries are codominant and do not exhibit significant disease. 4. Elevated left ventricular end-diastolic pressure (20 mmHg). Job ID: [id number] DocumentID: [id number] Dictated Date: 08/11/2022 12:16:31 Dolly Driver Date: 08/11/2022 15:40:00 Dictated By: TONEY PARADA MD; MA; FACP; FACC; BERNIE
== END 2022-08-11 18:15 | disposition short-term general hospital (02) | DRG 280 ==
LOC: EDUNIT# 18:43 → ER 18:44 → CSD 20:30
PROVIDERS: ADMIT Family Medicine; ATTEND Internal Medicine
PROC: 4A023N8 Measurement of Cardiac Sampling and Pressure, Bilateral, Percutaneous Approach (ICD-10-PCS; principal; 2022-08-11)
PROC: B2111ZZ Fluoroscopy of Multiple Coronary Arteries using Low Osmolar Contrast (ICD-10-PCS; 2022-08-11)
PROC: 4A033BC Measurement of Arterial Pressure, Coronary, Percutaneous Approach (ICD-10-PCS; 2022-08-11)
DX: I11.0 Hypertensive heart disease with heart failure (principal); I50.31 Acute diastolic (congestive) heart failure; I21.A1 Myocardial infarction type 2; I51.1 Rupture of chordae tendineae, not elsewhere classified; I34.1 Nonrheumatic mitral (valve) prolapse; I27.20 Pulmonary hypertension, unspecified; M25.511 Pain in right shoulder; F17.200 Nicotine dependence, unspecified, uncomplicated; I25.10 Atherosclerotic heart disease of native coronary artery without angina pectoris; Z20.822 Contact with and (suspected) exposure to COVID-19; H54.7 Unspecified visual loss
CPT/HCPCS: 36415; 71275; 80048; 83735; 84484; 85025; 85379; 85610; 85730; 86141; 87636; 93005; 93306; 93312; 93460; 94640

== ENCOUNTER → 2022-08-08 | Outpatient (CLI) | payer BC ==
[~2022-08-08] MED LIST: ACET-2267 PO; AZIT-21 PO; BLUE500T PO; COLLAGEN PEPTIDES PO; FURO20TA4 PO; IBUP-2473 PO; MAGN400T39 PO; NAPR220T66 PO; POTA10TA PO; POTA2TAB5 PO; SOY155CA PO; TURM500C4 PO; VITA-189 PO
--- NOTE | 2022-08-08 16:47 | Diagnostic Imaging Report ---
INDICATION: SOA, nonrheumatic mitral valve prolapse. TECHNIQUE: Two view chest 4:37 PM. CORRELATION STUDY: None. FINDINGS: Moderate cardiac enlargement with a somewhat rounded configuration. Vasculature overall within normal limits. The lungs are clear with no consolidating infiltrate. There is no significant pleural effusion or pneumothorax. Mild S-type scoliotic curvature of the thoracic spine. IMPRESSION: Cardiac enlargement with somewhat rounded configuration. May reflect underlying cardiomyopathy versus pericardial effusion. No evidence of overt failure. Report was faxed to number provided at 4:45 p.m., by breana. Dictated by: Dictated on workstation # [id number]
[2022-08-08 16:50] LABS: BASOPHILS % (AUTO) 0 % (0-10); EOSINOPHILS # (AUTO) 0.1 10^3/uL (0.0-0.3); EOSINOPHILS % (AUTO) 1 % (0-10); HEMATOCRIT 46 % (35-52); HEMOGLOBIN 15.3 g/dL (11.5-16.0); LYMPHOCYTES # (AUTO) 2.4 10^3/uL (1.0-4.0); LYMPHOCYTES % (AUTO) 31 % (12-44); MEAN CORPUSCULAR HEMOGLOBIN 31 pg (25-34); MEAN CORPUSCULAR HGB CONC 33 g/dL (32-36); MEAN CORPUSCULAR VOLUME 94 fL (80-99); MEAN PLATELET VOLUME 9.5 fL (9.0-12.2); MONOCYTES # (AUTO) 0.4 10^3/uL (0.0-1.0); MONOCYTES % (AUTO) 6 % (0-12); NEUTROPHILS # (AUTO) 4.7 10^3/uL (1.8-7.8); NEUTROPHILS % (AUTO) 62 % (42-75); PLATELET COUNT 243 10^3/uL (130-400); WHITE BLOOD COUNT 7.7 10^3/uL (4.3-11.0)
[2022-08-08 17:00] LABS: CALCIUM 9.3 MG/DL (8.5-10.1)
[2022-08-08 17:01] LABS: TOTAL PROTEIN 6.5 GM/DL (6.4-8.2)
[2022-08-08 17:03] LABS: BILIRUBIN,TOTAL 0.7 MG/DL (0.1-1.0)
[2022-08-08 17:05] LABS: CREATININE SERUM 1.05 MG/DL (0.60-1.30)
[2022-08-08 17:13] LABS: CREATINE KINASE MB 2.8 NG/ML (<6.6)
== END ==
LOC: RAD 16:17
PROVIDERS: ATTEND Registered Nurse Critical Care Medicine
DX: I34.1 Nonrheumatic mitral (valve) prolapse (principal); M62.838 Other muscle spasm; S39.012A Strain of muscle, fascia and tendon of lower back, initial encounter; I51.7 Cardiomegaly; X58.XXXA Exposure to other specified factors, initial encounter
CPT/HCPCS: 36415; 71046; 80053; 82550; 82553; 83880; 84484; 85025; 86738